=== PATIENT | male | born 1985 | race Caucasian/White ===

== ENCOUNTER 2019-07-01 07:17 | Observation (INO) | payer BC ==
[2019-07-01] MEDS ORDERED: DEXAMETHASONE SOD PHOS INJ 10 MG/1 ML VIAL IV ONE (09:16)
--- NOTE | 2019-07-01 10:31 | RADIOLOGY REPORT (SQ) ---
EXAM DESCRIPTION: CT SOFT TISSUE NECK WITH COMPLETED DATE/TIME: 07/01/2019 10:15 am REASON FOR STUDY: difficulty swallowing swollen COMPARISON: None. TECHNIQUE: Post IV contrasted scanning from skull base through lung apices with review of bone, soft tissue and lung windows. Reconstructed coronal and sagittal MPR images reviewed. All images stored on PACS. All CT scanners at this facility use dose modulation, iterative reconstruction, and/or weight based d osing when appropriate to reduce radiation dose to as low as reasonably achievable (ALARA). [facility]: Dose Right [facility]: CareDose [facility]: Dose Right [facility]: Teradose 4D [facility]: [employer] CONTRAST TYPE AND DOSE: contrast/concentration: Isovue 350.00 mg/ml; Total Contrast Delivered: 75.0 ml; Total Saline Delivered: 45.3 ml RENAL FUNCTION: GFR > 60. RADIATION DOSE: CT Rad equipment meets quality standard of care and radiation dose reduction techniq ues were employed. CTDIvol: 17.1 mGy. DLP: 582 mGy-cm. . LIMITATIONS: None. FINDINGS: SKULL BASE: Intact. MAJOR SALIVARY GLANDS: The parotid and submandibular glands are normal. LYMPHADENOPATHY: There are enlarged enhancing bilateral (right greater than left level II and III lym ph nodes that measure up to 12 mm in short axis diameter. MUCOSAL MASSES OR ASYMMETRY: There is a rim enhancing fluid collection at the dorsum of the tongue (t o the right of midline and anterior to the epiglottis) That measures 18 x 13 mm. The epiglottis is n ormal. LARYNX/CORDS: No abnormal findings. VASCULAR STRUCTURES: Patent. LUNG APICES: Clear. BONES: Intact. THYROID: No abnormality. PARANASAL SINUSES: Clear. OTHER: No other finding. IMPRESSION: Potential lingular tonsillar abscess that measures 18 x 13 mm and associated with reacti ve bilateral level II and III adenopathy. TECHNICAL DOCUMENTATION: JOB ID: [id number] Quality ID # [id number]: Final reports with documentation of one or more dose reduction techniques (e.g., Au tomated exposure control, adjustment of the mA and/or kV according to patient size, use of iterative reconstruction technique) 2010 [employer]- All Rights Reserved Reading location - IP/workstation name: [email or web address]
--- NOTE | 2019-07-01 10:33 | ER Document Report ---
ED General - General Chief Complaint: Sore Throat Stated Complaint: SORE THROAT Time Seen by Provider: 07/01/19 08:58 Mode of Arrival: Ambulatory Information source: Patient Notes: This 33-year-old male presents emergency department with complaints of sore throat and right ear pain since Friday. He denies fever vomiting diarrhea. [place] cough denies shortness of breath. he reports some difficulty swallowing since yesterday. Has not had anything to eat since yesterday. Reports he was seen by his primary care provider on Friday for checkup and did not have the symptoms. He reports he did receive the flu vaccine. Patient voice seems somewhat muffled but not a hot potato voice. He reports is not his normal voice. TRAVEL OUTSIDE OF THE [place] IN LAST 30 DAYS: No - HPI Onset: Other - 4 days Onset/Duration: Sudden Quality of pain: Other - sore Associated symptoms: Sore throat Exacerbated by: Denies Relieved by: Denies Similar symptoms previously: No Recently seen / treated by doctor: No - Related Data Allergies/Adverse Reactions: No Known Allergies Allergy (Verified 07/01/19 08:12) Home Medications: pristique Past Medical History - General Information source: Patient - Social History Smoking Status: Never Smoker Chew tobacco use (# tins/day): No Frequency of alcohol use: Occasional Drug Abuse: None Lives with: Family Family History: None Patient has suicidal ideation: No Patient has homicidal ideation: No Psychiatric Medical History: Reports: Hx Depression Surgical Hx: Negative - Immunizations History of Influenza Vaccine for 02/2019 - 07/2019 Season: Yes Review of Systems - Review of Systems Notes: Review HPI for review of systems., All other systems negative Physical Exam - Vital signs Vitals: Temp Pulse Resp BP Pulse Ox 99.0 F 114 H 20 144/93 H 96 07/01/19 07:24 07/01/19 07:24 07/01/19 07:24 07/01/19 07:24 07/01/19 07:24 - General General appearance: Alert In distress: None - HEENT Head: Normocephalic Eyes: Normal Conjunctiva: Normal Extraocular movements intact: Yes Ears: Normal External canal: Normal Tympanic membrane: Normal Nasal: Normal Mucous membranes: Moist Pharynx: Erythema, Tonsillar hypertrophy Neck: Normal, Lymphadenopathy, Supple - Respiratory Respiratory status: No respiratory distress Chest status: Nontender Breath sounds: Normal Chest palpation: Normal - Cardiovascular Rhythm: Regular, Tachycardia Heart sounds: Normal auscultation Murmur: No - Abdominal Inspection: Normal Distension: No distension Bowel sounds: Normal Tenderness: Nontender Organomegaly: No organomegaly - Back Back: Normal, Nontender - Extremities General upper extremity: Normal ROM General lower extremity: Normal ROM - Neurological Neuro grossly intact: Yes Cognition: Normal Orientation: AAOx4 [place] Coma Scale Eye Opening: Spontaneous [place] Coma Scale Verbal: Oriented Susanne Coma Scale Motor: Obeys Commands [place] Coma Scale Total: 15 - Psychological Associated symptoms: Normal affect, Normal mood - Skin Skin Temperature: Warm Skin Moisture: Dry Skin Color: Normal Course - Re-evaluation Re-evalutation: 07/01/19 10:33 33-year-old male presents emergency department with complaints of sore throat. Strep test negative. Patient did have a slightly muffled voice not a hot potato voice but he reports is not his normal voice. CT was soft tissue of the neck was done where a tonsillar abscess was noted. Patient slightly tachy. He was advised of n.p.o. I contacted Dr. Marc ENT and he advised admission for steroids and antibiotics. He reports he can be consulted as needed. Patient was admitted to the hospitalist Dr. Jason via [facility]. Labs and blood culture ordered. Patient instructed on admission and agrees to plan of care. Laboratory 07/01/19 07:45 Group A Strep Rapid NEGATIVE Soft Tissue Neck CT 07/01/19 09:14 IMPRESSION: Potential lingular tonsillar abscess that measures 18 x 13 mm and associated with reactive bilateral level II and III adenopathy. Laboratory 07/01/19 07/01/19 07/01/19 07:45 11:15 11:15 WBC 24.2 H RBC 5.33 Hgb 15.3 Hct 44.9 MCV 84 MCH 28.7 MCHC 34.1 RDW 13.1 Plt Count 278 Lymph % (Auto) Not Reportable [place] % (Auto) Not Reportable Eos % (Auto) Not Reportable Baso % (Auto) Not Reportable Absolute Neuts (auto) Not Reportable Absolute Lymphs (auto) Not Reportable Absolute Monos (auto) Not Reportable Absolute Eos (auto) Not Reportable Absolute Basos (auto) Not Reportable Total Counted 100 Seg Neutrophils % Not Reportable Seg Neuts % (Manual) 93 H Band Neutrophils % 1 L Lymphocytes % (Manual) 5 L Monocytes % (Manual) 1 L Eosinophils % (Manual) 0 Basophils % (Manual) 0 Abs Neuts (Manual) 22.7 H Abs Lymphs (Manual) 1.2 Abs Monocytes (Manual) 0.2 Absolute Eos (Manual) 0.0 Abs Basophils (Manual) 0.0 Toxic Vacuolation PRESENT Platelet Comment ADEQUATE Polychromasia SLIGHT Hypochromasia SLIGHT Tear Drop Cells SLIGHT Sodium 139.6 Potassium 4.7 Chloride 101 Carbon Dioxide 26 Anion Gap 13 BUN 13 Creatinine 0.87 Est GFR ( Amer) > 60 Est GFR (MDRD) Non-Af > 60 Glucose 121 H Calcium 9.7 Total Bilirubin 0.9 Direct Bilirubin 0.4 Neonat Total Bilirubin Not Reportable Neonat Direct Bilirubin Not Reportable Neonat Indirect Bili Not Reportable AST 33 ALT 42 Alkaline Phosphatase 115 Total Protein 8.3 H Albumin 4.5 Group A Strep Rapid NEGATIVE 07/01/19 18:27 07/01/19 18:28 - Vital Signs Vital signs: Temp Pulse Resp BP Pulse Ox 98.9 F 92 18 137/87 H 95 07/01/19 11:49 07/01/19 11:49 07/01/19 11:49 07/01/19 11:49 07/01/19 11:49 - Laboratory Result Diagrams: 07/01/19 11:15 07/01/19 11:15 Laboratory results interpreted by me: 07/01/19 07/01/19 11:15 11:15 WBC 24.2 H Seg Neuts % (Manual) 93 H Band Neutrophils % 1 L Lymphocytes % (Manual) 5 L Monocytes % (Manual) 1 L Abs Neuts (Manual) 22.7 H Glucose 121 H Total Protein 8.3 H - Diagnostic Test Radiology reviewed: Image reviewed, Reports reviewed - Consults dr marc Time consulted: 11:00 Reason for consultation: 07/01/19 11:16 lingular tonsillar abscess Consulted provider: other - advised admission via hospitalist, consult as indicated Discharge - Discharge Clinical Impression: Sore throat, lingular tonsillar abscess Condition: Stable Disposition: ADMITTED OBSERVATION Admitting Provider: Eren (Hospitalist) Unit Admitted: Medical Floor
[2019-07-01] MEDS ORDERED: AMPICILLIN SOD/SULBACTAM 3 GM VIAL IV ONE (11:15)
[2019-07-01 11:30] LABS: HEMATOCRIT 44.9 % (37.9-51.0); HEMOGLOBIN 15.3 g/dL (13.5-17.0); MEAN CORPUSCULAR HEMOGLOBIN 28.7 pg (27.0-33.4); MEAN CORPUSCULAR HGB CONC 34.1 g/dL (32.0-36.0); MEAN CORPUSCULAR VOLUME 84 fl (80-97); PLATELET COUNT 278 10^3/uL (150-450); RED BLOOD COUNT 5.33 10^6/uL (4.35-5.55); RED CELL DISTRIBUTION WIDTH 13.1 % (11.5-14.0); WHITE BLOOD COUNT 24.2 10^3/uL (4.0-10.5)
[2019-07-01 11:53] LABS: ALBUMIN 4.5 g/dL (3.5-5.0); ALKALINE PHOSPHATASE 115 U/L (38-126); ANION GAP 13 (5-19); ASPARTATE AMINO TRANSFERASE 33 U/L (17-59); BILIRUBIN,DIRECT 0.4 mg/dL (0.0-0.4); BILIRUBIN,TOTAL 0.9 mg/dL (0.2-1.3); BLOOD UREA NITROGEN 13 mg/dL (7-20); CALCIUM 9.7 mg/dL (8.4-10.2); CARBON DIOXIDE 26 mmol/L (22-30); CHLORIDE 101 mmol/L (98-107); GLUCOSE 121 mg/dL (75-110); POTASSIUM 4.7 mmol/L (3.6-5.0); TOTAL PROTEIN 8.3 g/dL (6.3-8.2)
[2019-07-01 11:54] LABS: ABSOLUTE LYMPHOCYTES# (MANUAL) 1.2 10^3/uL (0.5-4.7); ABSOLUTE MONOCYTES # (MANUAL) 0.2 10^3/uL (0.1-1.4); BAND NEUTROPHILS % (MANUAL) 1 % (3-5); BASOPHILS % (MANUAL) 0 % (0-2); EOSINOPHILS % (MANUAL) 0 % (0-6); LYMPHOCYTES % (MANUAL) 5 % (13-45); MONOCYTES % (MANUAL) 1 % (3-13); SEGMENTED NEUTROPHILS % (MAN) 93 % (42-78); TOTAL CELLS COUNTED 100
[2019-07-01 11:56] LABS: HYPOCHROMASIA SLIGHT; PLATELET COMMENT ADEQUATE; POLYCHROMASIA SLIGHT; TEAR DROP CELLS SLIGHT; TOXIC VACUOLATION PRESENT
[2019-07-01] MEDS ORDERED: ALBUTEROL SULFATE 0.083% NEB 2.5 MG/3 ML AMPUL NEB PRN (13:13)
[2019-07-01] MEDS ORDERED: ONDANSETRON HCL INJ/PF 4 MG/2 ML SDV IV PRN (13:13)
[2019-07-01] MEDS ORDERED: PROMETHAZINE HCL INJ 25 MG/1 ML VIAL IV PRN (13:13)
[2019-07-01] MEDS ORDERED: NORMAL SALINE 1000 ML 1,000 ML IV PRN (13:13)
[2019-07-01] MEDS ORDERED: MAG HYDROX/AL HYDROX/SIMETH SUSP 30 ML UDCUP PO PRN (13:13)
[2019-07-01] MEDS ORDERED: DEXAMETHASONE SOD PHOS INJ 10 MG/1 ML VIAL IV SCH (14:00)
[2019-07-01] MEDS: HEPARIN SOD (PORCINE) 5,000 UNIT/ML 1 ML VIAL SUBCUT SCH ×2 (15:28→23:55)
[2019-07-01] MEDS: DEXAMETHASONE SOD PHOS INJ 10 MG/1 ML VIAL IV SCH ×2 (15:29→23:54)
--- NOTE | 2019-07-01 18:35 | PDOC H&P ---
History of Present Illness Admission Date/PCP: 07/01/19 11:18 MARLYN COPE MD Patient complains of: Sore throat, difficulty swallowing History of Present Illness: YOBANY HERMOSILLO is a 33 year old male with a past medical history of depression and ZELALEM who presented to the emergency department today with complaint of 4 days of low-grade fevers, sore throat, rhinorrhea, bilateral ear pain, and now difficulty swallowing. Evaluation in the emergency department revealed leukocytosis (WBCs 24.2), unremarkable chemistry, negative rapid strep, and soft tissue neck CT revealing potential lingular tonsillar abscess. The emergency department provider spoke with ENT. Dr. Marc recommends observational admission with IV Unasyn and Decadron overnight. Therefore, the hospitalist service was consulted for admission and management of the above-stated complaints of findings. Past Medical History Cardiac Medical History: Reports: None Pulmonary Medical History: Reports: Sleep Apnea EENT Medical History: Reports: None Neurological Medical History: Reports: None Endocrine Medical History: Reports: None Renal/ Medical History: Reports: None Malignancy Medical History: Reports: None GI Medical History: Reports: None Musculoskeltal Medical History: Reports: None Skin Medical History: Reports: None Psychiatric Medical History: Reports: Depression Traumatic Medical History: Reports: None Hematology: Reports: None Infectious Medical History: Reports: None Past Surgical History Past Surgical History: Reports: None Social History Information Source: Patient Lives with: Family Smoking Status: Never Smoker Electronic Cigarette use?: No Frequency of Alcohol Use: None Hx Recreational Drug Use: No Hx Prescription Drug Abuse: No - Advance Directive Resuscitation Status: Full Code Family History Family History: None Parental Family History Reviewed: Yes Children Family History Reviewed: Yes Sibling(s) Family History Reviewed.: Yes Medication/Allergy Home Medications: Desvenlafaxine Succinate [Pristiq ER] 50 mg PO DAILY 07/01/19 Allergies/Adverse Reactions: No Known Allergies Allergy (Verified 07/01/19 08:12) Review of Systems Constitutional: PRESENT: chills, fever(s). ABSENT: headache(s), weight gain, weight loss Eyes: ABSENT: visual disturbances Ears: ABSENT: hearing changes Nose, Mouth, and Throat: PRESENT: as per HPI, sore throat Cardiovascular: ABSENT: chest pain, dyspnea on exertion, edema, orthropnea, palpitations Respiratory: ABSENT: cough, hemoptysis Gastrointestinal: ABSENT: abdominal pain, constipation, diarrhea, hematemesis, hematochezia, nausea, vomiting Genitourinary: ABSENT: dysuria, hematuria Musculoskeletal: ABSENT: joint swelling Integumentary: ABSENT: rash, wounds Neurological: ABSENT: abnormal gait, abnormal speech, confusion, dizziness, focal weakness, syncope Psychiatric: ABSENT: anxiety, depression, homidical ideation, suicidal ideation Endocrine: ABSENT: cold intolerance, heat intolerance, polydipsia, polyuria Hematologic/Lymphatic: ABSENT: easy bleeding, easy bruising Physical Exam Vital Signs: Temp Pulse Resp BP Pulse Ox 98.9 F 92 18 137/87 H 95 07/01/19 11:49 07/01/19 11:49 07/01/19 11:49 07/01/19 11:49 07/01/19 11:49 Intake & Output 06/30/19 07/01/19 07/02/19 06:59 06:59 06:59 Weight 109 kg General appearance: PRESENT: no acute distress, cooperative, obese, well- developed, well-nourished Head exam: PRESENT: atraumatic, normocephalic Eye exam: PRESENT: conjunctiva pink, EOMI, PERRLA. ABSENT: scleral icterus Ear exam: PRESENT: normal external ear exam Mouth exam: PRESENT: moist, tongue midline Throat exam: PRESENT: other - Unable to assess; difficulty opening mouth related to pain Neck exam: PRESENT: full ROM, lymphadenopathy, tenderness. ABSENT: carotid bruit, JVD, meningismus, thyromegaly, tracheal deviation Respiratory exam: PRESENT: clear to auscultation zita, symmetrical, unlabored. ABSENT: rales, rhonchi, wheezes Cardiovascular exam: PRESENT: RRR, +S1, +S2. ABSENT: diastolic murmur, rubs, systolic murmur Pulses: PRESENT: normal dorsalis pedis pul Vascular exam: PRESENT: normal capillary refill GI/Abdominal exam: PRESENT: normal bowel sounds, soft. ABSENT: distended, guarding, mass, organolmegaly, rebound, tenderness Rectal exam: PRESENT: deferred Extremities exam: PRESENT: full ROM. ABSENT: calf tenderness, clubbing, pedal edema Neurological exam: PRESENT: alert, awake, oriented to person, oriented to place, oriented to time, oriented to situation, CN II-XII grossly intact. ABSENT: motor sensory deficit Psychiatric exam: PRESENT: appropriate affect, normal mood. ABSENT: homicidal ideation, suicidal ideation Skin exam: PRESENT: dry, intact, warm. ABSENT: cyanosis, rash Results Laboratory Results: 07/01/19 11:15 07/01/19 11:15 07/01/19 07/01/19 11:15 11:15 WBC 24.2 H RBC 5.33 Hgb 15.3 Hct 44.9 MCV 84 MCH 28.7 MCHC 34.1 RDW 13.1 Plt Count 278 Seg Neutrophils % Not Reportable Sodium 139.6 Potassium 4.7 Chloride 101 Carbon Dioxide 26 Anion Gap 13 BUN 13 Creatinine 0.87 Est GFR ( Amer) > 60 Glucose 121 H Calcium 9.7 Total Bilirubin 0.9 AST 33 Alkaline Phosphatase 115 Total Protein 8.3 H Albumin 4.5 Impressions: Soft Tissue Neck CT 07/01/19 09:14 IMPRESSION: Potential lingular tonsillar abscess that measures 18 x 13 mm and associated with reactive bilateral level II and III adenopathy. Assessment and Plan - Diagnosis (1) Lingular tonsillitis Is this a current diagnosis for this admission?: Yes Plan: Patient was noted to have a lingular abscess on CT imaging. WBCs 24K Rapid strep negative. Blood cultures pending. Patient is admitted to the medical floor. He is provided IV fluids. Empirically started on IV Unasyn. Previous provider discussed with Dr. Marc; if not improved tomorrow, will place formal consult. Tylenol as needed for fever or discomfort. (2) Obesity Qualifiers: Body mass index: BMI 35.0-35.9 Is this a current diagnosis for this admission?: Yes Plan: BMI 35.5. Dietary discretion and lifestyle modification encouraged. (3) ZELALEM (obstructive sleep apnea) Is this a current diagnosis for this admission?: Yes Plan: CPAP nightly; may use home device. (4) Sore throat Is this a current diagnosis for this admission?: Yes Plan: Secondary to #1. Evaluation management as above. - Time Time Spent with patient: 35 or more minutes Medications reviewed and adjusted accordingly: Yes Anticipated discharge: Home Within: within 24 hours
[2019-07-01] MEDS: AMPICILLIN SODIUM/SULBACTAM NA 3 GM in NORMAL SALINE 100 ML IV SCH ×2 (18:56→23:53)
[2019-07-01] MEDS ORDERED: FAMOTIDINE INJ/PF 20 MG/2 ML SDV IV SCH (22:00)
[2019-07-01] MEDS: FAMOTIDINE INJ/PF 20 MG/2 ML SDV IV SCH (23:54)
[2019-07-02] MEDS ORDERED: INFLUENZA QUAD (6MOS+) 2019-20 VAC 0.5 ML SYR IM ONE (02:12)
[2019-07-02] MEDS: DEXAMETHASONE SOD PHOS INJ 10 MG/1 ML VIAL IV SCH (06:12)
[2019-07-02] MEDS: HEPARIN SOD (PORCINE) 5,000 UNIT/ML 1 ML VIAL SUBCUT SCH ×2 (06:12→13:37)
[2019-07-02] MEDS: AMPICILLIN SODIUM/SULBACTAM NA 3 GM in NORMAL SALINE 100 ML IV SCH ×2 (06:12→12:38)
[2019-07-02 08:13] LABS: HEMATOCRIT 43.2 % (37.9-51.0); HEMOGLOBIN 14.4 g/dL (13.5-17.0); MEAN CORPUSCULAR HEMOGLOBIN 28.3 pg (27.0-33.4); MEAN CORPUSCULAR HGB CONC 33.5 g/dL (32.0-36.0); MEAN CORPUSCULAR VOLUME 85 fl (80-97); PLATELET COUNT 288 10^3/uL (150-450); RED CELL DISTRIBUTION WIDTH 13.1 % (11.5-14.0); WHITE BLOOD COUNT 28.5 10^3/uL (4.0-10.5)
[2019-07-02 08:34] LABS: ANION GAP 15 (5-19); BLOOD UREA NITROGEN 19 mg/dL (7-20); CALCIUM 9.7 mg/dL (8.4-10.2); CARBON DIOXIDE 26 mmol/L (22-30); CHLORIDE 101 mmol/L (98-107); GLUCOSE 146 mg/dL (75-110); POTASSIUM 4.3 mmol/L (3.6-5.0)
[2019-07-02 09:02] LABS: ABSOLUTE LYMPHOCYTES# (MANUAL) 0.9 10^3/uL (0.5-4.7); ABSOLUTE MONOCYTES # (MANUAL) 1.4 10^3/uL (0.1-1.4); BASOPHILS % (MANUAL) 0 % (0-2); EOSINOPHILS % (MANUAL) 0 % (0-6); LYMPHOCYTES % (MANUAL) 3 % (13-45); MONOCYTES % (MANUAL) 5 % (3-13); SEGMENTED NEUTROPHILS % (MAN) 92 % (42-78); TOTAL CELLS COUNTED 100
[2019-07-02 09:03] LABS: RBC MORPHOLOGY COMMENT NORMO-CYTIC/CHROMIC; TOXIC GRANULATION SLIGHT
[2019-07-02 09:04] LABS: PLATELET COMMENT ADEQUATE
[2019-07-02 09:10] VITALS: BP 103/61
[2019-07-02] MEDS: FAMOTIDINE INJ/PF 20 MG/2 ML SDV IV SCH (09:36)
[2019-07-02] MEDS ORDERED: VENLAFAXINE HCL 75 MG CAP.SR.24H PO SCH (10:00)
[2019-07-02] MEDS ORDERED: (PENDING PHARMACY ID) (Desvenlafaxine Succinate [Pristiq] 50 MG) PO SCH (10:00)
[2019-07-02] MEDS ORDERED: NORMAL SALINE 1000 ML 1,000 ML IV PRN (10:46)
--- NOTE | 2019-07-02 12:44 | PDOC DISCHARGE SUMMARY ---
Impression - Admit/DC Date/PCP Admission Date/Primary Care Provider: 07/01/19 11:18 MARLYN COPE MD Discharge Date: 07/02/19 - Discharge Diagnosis (1) Lingular tonsillitis Is this a current diagnosis for this admission?: Yes (2) ZELALEM (obstructive sleep apnea) Is this a current diagnosis for this admission?: Yes (3) Obesity Is this a current diagnosis for this admission?: Yes (4) Sore throat Is this a current diagnosis for this admission?: Yes - Additional Information Resuscitation Status: Full Code Discharge Diet: Cardiac Discharge Activity: Activity As Tolerated Referrals: BILL MARC MD [ACTIVE STAFF] - (OFFICE IS CLOSED TODAY.) Prescriptions: Levofloxacin [Levaquin 500 mg Tablet] 500 mg PO DAILY 10 Days #10 tablet Home Medications: Desvenlafaxine Succinate [Pristiq] 50 mg PO DAILY 07/01/19 Levofloxacin [Levaquin 500 mg Tablet] 500 mg PO DAILY 10 Days #10 tablet 07/02/19 History of Present Illiness History of Present Illness: YOBANY HERMOSILLO is a 33 year old male 33 year old male with a past medical history of depression and ZELALEM who presented to the emergency department today with complaint of 4 days of low-grade fevers, sore throat, rhinorrhea, bilateral ear pain, and now difficulty swallowing. Evaluation in the emergency department revealed leukocytosis (WBCs 24.2), unremarkable chemistry, negative rapid strep, and soft tissue neck CT revealing potential lingular tonsillar abscess. The emergency department provider spoke with ENT. Dr. Marc recommends observational admission with IV Unasyn and Decadron overnight. Therefore, the hospitalist service was consulted for admission and management of the above-stated complaints of findings. 07/02[birth year][id number]-atrc-old male with history of depression, obstructive sleep apnea admitted with complaints of sore throat, low-grade fever, bilateral ear pain and difficulty swallowing. Patient was started on IV Unasyn and Decadron overnight. As per the patient he feels thousand times better and requesting to go home today. His WBC count came up to 28,500 it may be secondary to Decadron it may be secondary to underlying infection. Blood cultures are pending. I tried my best to convince him to stay in the hospital but he wants to go home because of the family issues. Hospital Course Hospital Course: 33 year old male with a past medical history of depression and ZELALEM who presented to the emergency department today with complaint of 4 days of low-grade fevers, sore throat, rhinorrhea, bilateral ear pain, and now difficulty swallowing. Evaluation in the emergency department revealed leukocytosis (WBCs 24.2), unremarkable chemistry, negative rapid strep, and soft tissue neck CT revealing potential lingular tonsillar abscess. The emergency department provider spoke with ENT. Dr. Marc recommends observational admission with IV Unasyn and Decadron overnight. Therefore, the hospitalist service was consulted for admission and management of the above-stated complaints of findings. 07/02/2019-patient is afebrile but WBC count is 28,500 blood pressure is stable I requested him to stay in the hospital for at least another day that had made best to convince him but because of the family issues he was to go home. I gave a prescription for levofloxacin 5 mg p.o. daily for 10 days. If the symptoms recur advised him to come to the ER [facility]. Also advised him to follow-up with PCP and also with the ENT within few days. pt understood and verbalized response. Physical Exam Vital Signs: Temp Pulse Resp BP Pulse Ox 98.0 F 86 16 103/61 97 07/02/19 12:28 07/02/19 12:28 07/02/19 12:28 07/02/19 12:28 07/02/19 12:28 Intake & Output 07/01/19 07/02/19 07/03/19 06:59 06:59 06:59 Intake Total 200 100 Balance 200 100 Weight 105.2 kg General appearance: PRESENT: no acute distress, well-developed Head exam: PRESENT: atraumatic Eye exam: PRESENT: PERRLA Mouth exam: PRESENT: moist, tongue midline Neck exam: ABSENT: carotid bruit, JVD, lymphadenopathy, thyromegaly Respiratory exam: PRESENT: clear to auscultation zita. ABSENT: rales, rhonchi, wheezes Cardiovascular exam: PRESENT: RRR. ABSENT: diastolic murmur, rubs, systolic murmur GI/Abdominal exam: PRESENT: normal bowel sounds, soft. ABSENT: distended, guarding, mass, organolmegaly, rebound, tenderness Rectal exam: PRESENT: deferred Extremities exam: PRESENT: full ROM. ABSENT: calf tenderness, clubbing, pedal edema Neurological exam: PRESENT: alert, awake, oriented to person, oriented to place, oriented to time, oriented to situation, CN II-XII grossly intact. ABSENT: motor sensory deficit Psychiatric exam: PRESENT: appropriate affect, normal mood. ABSENT: homicidal ideation, suicidal ideation Results Laboratory Results: WBC 28.5 10^3/uL (4.0-10.5) H 07/02/19 07: RBC 5.10 10^6/uL (4.35-5.55) 07/02/19 07:29 Hgb 14.4 g/dL (13.5-17.0) 07/02/19 07: Hct 43.2 % (37.9-51.0) 07/02/19 07: MCV 85 fl (80-97) 07/02/19 07: MCH 28.3 pg (27.0-33.4) 07/02/19 07: MCHC 33.5 g/dL (32.0-36.0) 07/02/19 07: RDW 13.1 % (11.5-14.0) 07/02/19 07:29 Plt Count 288 10^3/uL (150-450) 07/02/19 07:29 Lymph % (Auto) Not Reportable 07/02/19 07:29 [place] % (Auto) Not Reportable 07/02/19 07:29 Eos % (Auto) Not Reportable 07/02/19 07:29 Baso % (Auto) Not Reportable 07/02/19 07:29 Absolute Neuts (auto) Not Reportable 07/02/19 07:29 Absolute Lymphs (auto) Not Reportable 07/02/19 07:29 Absolute Monos (auto) Not Reportable 07/02/19 07:29 Absolute Eos (auto) Not Reportable 07/02/19 07:29 Absolute Basos (auto) Not Reportable 07/02/19 07:29 Total Counted 100 07/02/19 07:29 Seg Neutrophils % Not Reportable 07/02/19 07:29 Seg Neuts % (Manual) 92 % (42-78) H 07/02/19 07:29 Band Neutrophils % 1 % (3-5) L 07/01/19 11:15 Lymphocytes % (Manual) 3 % (13-45) L 07/02/19 07: Monocytes % (Manual) 5 % (3-13) 07/02/19 07: Eosinophils % (Manual) 0 % (0-6) 07/02/19 07: Basophils % (Manual) 0 % (0-2) 07/02/19 07:29 Abs Neuts (Manual) 26.2 10^3/uL (1.7-8.2) H 07/02/19 07:29 Abs Lymphs (Manual) 0.9 10^3/uL (0.5-4.7) 07/02/19 07: Abs Monocytes (Manual) 1.4 10^3/uL (0.1-1.4) 07/02/19 07: Absolute Eos (Manual) 0.0 10^3/uL (0.0-0.6) 07/02/19 07: Abs Basophils (Manual) 0.0 10^3/uL (0.0-0.2) 07/02/19 07:29 Toxic Granulation SLIGHT 07/02/19 07:29 Toxic Vacuolation PRESENT 07/01/19 11:15 Platelet Comment ADEQUATE 07/02/19 07:29 Polychromasia SLIGHT 07/01/19 11:15 Hypochromasia SLIGHT 07/01/19 11:15 Tear Drop Cells SLIGHT 07/01/19 11:15 RBC Morph Comment NORMO-CYTIC/CHROMIC 07/02/19 07:29 Sodium 142.1 mmol/L (137-145) 07/02/19 07:29 Potassium 4.3 mmol/L (3.6-5.0) 07/02/19 07: Chloride 101 mmol/L (98-107) 07/02/19 07:29 Carbon Dioxide 26 mmol/L (22-30) 07/02/19 07:29 Anion Gap 15 (5-19) 07/02/19 07:29 BUN 19 mg/dL (7-20) 07/02/19 07:29 Creatinine 0.88 mg/dL (0.52-1.25) 07/02/19 07:29 Est GFR ( Amer) > 60 (>60) 07/02/19 07:29 Est GFR (MDRD) Non-Af > 60 (>60) 07/02/19 07:29 Glucose 146 mg/dL (75-110) H 07/02/19 07:29 Calcium 9.7 mg/dL (8.4-10.2) 07/02/19 07:29 Total Bilirubin 0.9 mg/dL (0.2-1.3) 07/01/19 11:15 Direct Bilirubin 0.4 mg/dL (0.0-0.4) 07/01/19 11:15 Neonat Total Bilirubin Not Reportable 07/01/19 11:15 Neonat Direct Bilirubin Not Reportable 07/01/19 11:15 Neonat Indirect Bili Not Reportable 07/01/19 11:15 AST 33 U/L (17-59) 07/01/19 11:15 ALT 42 U/L (<50) 07/01/19 11:15 Alkaline Phosphatase 115 U/L (38-126) 07/01/19 11:15 Total Protein 8.3 g/dL (6.3-8.2) H 07/01/19 11:15 Albumin 4.5 g/dL (3.5-5.0) 07/01/19 11:15 Group A Strep Rapid NEGATIVE (NEGATIVE) 07/01/19 07:45 Impressions: Soft Tissue Neck CT 07/01/19 09:14 IMPRESSION: Potential lingular tonsillar abscess that measures 18 x 13 mm and associated with reactive bilateral level II and III adenopathy. Plan Plan of Treatment: Patient is going home today on levofloxacin 5 mg p.o. daily for 10days if the fever recurs or having the problems with breathing he was advised to call 911 [facility] and requested to come to the emergency room. Patient understood verbalized response. Time Spent: Greater than 30 Minutes Stroke Is this a Stroke Patient?: No Acute Heart Failure - Is this a Heart Failure Patient?: No
== END 2019-07-02 14:16 | disposition home or self-care (01) ==
LOC: ER 07:17 → EH 11:18 → 4S 16:42
PROVIDERS: ADMIT Internal Medicine; ATTEND Internal Medicine
DX: J36 Peritonsillar abscess (principal); G47.33 Obstructive sleep apnea (adult) (pediatric); E66.9 Obesity, unspecified; H92.03 Otalgia, bilateral; F32.9 Major depressive disorder, single episode, unspecified; R00.0 Tachycardia, unspecified; Z79.899 Other long term (current) drug therapy; Z68.35 Body mass index [BMI] 35.0-35.9, adult
CPT/HCPCS: 96376; 99284; 96372; 96374; 96375; 36415 ×2; 87040; 87070; 87880; 85025 ×2; 87077; 80048; 80053; 70491; 94660; G0378 ×3; J1644 ×2; J0295 ×2; J7050 ×2; S0028 ×2; J1100 ×2